=== PATIENT | female | born 1980 | race Two or more races ===

== ENCOUNTER 2021-03-23 17:45 | Emergency (ER) | payer OTHER, SELFPAY ==
[2021-03-23 18:15] VITALS: BP 154/90; PULSE 83; RESP 18; TEMP 36.5; O2SAT 99
[2021-03-23 21:15] VITALS: BP 148/88; PULSE 88; RESP 15; O2SAT 100
--- NOTE | 2021-03-23 21:22 | ED.SKABFB ---
HPI - Skin/Abscess/Foreign Bdy General Chief complaint: Skin/Abscess/Foreign Body Stated complaint: Absces Time Seen by Provider: 03/23/21 20:57 History of Present Illness HPI narrative: Patient presents with concern for abscess. Reports irritation close to her left axilla for the past 1 to 2 weeks getting progressively worse. It is now red warm and swollen. Reports history of abscesses this feels like her prior ones. She denies fevers, cough, congestion, chest pain. Her pain around her abscess site is achy, constant, worse with palpation, no radiation. Patient reports history of MRSA Related Data Allergies Allergy/AdvReac Type Severity Reaction Status Date / Time No Known Allergies Allergy Verified 03/23/21 21:14 Review of Systems Review of Systems: CONSTITUTIONAL: Denies fever, chills, or sweats. EYES: Denies visual changes, redness, or discharge. ENT: Denies rhinorrhea, congestion, sore throat, or otalgia. CARDIOVASCULAR: Denies chest pain, palpitations, or edema. RESPIRATORY: Denies cough or dyspnea. GASTROINTESTINAL: Denies abdominal pain, nausea, vomiting, or diarrhea. GENITOURINARY: Denies dysuria or hematuria. SKIN: Denies rash or itching. MUSCULOSKELETAL: Denies back pain, joint pain, or myalgia. NEUROLOGIC: Denies headache, numbness, dizziness, or weakness. PSYCHIATRIC: Denies anxiety or depression. All systems reviewed & are unremarkable except as noted in HPI and below Exam Narrative: GENERAL: Well-appearing, well-nourished, and in no acute distress. HEAD: Normocephalic, atraumatic. EYES: PERRLA and EOMI. ENT: Nares clear, no rhinorrhea or epistaxis. Mucous membranes moist. NECK: Supple. No masses. No JVD EXTREMITIES: Normal range of motion. No edema. SKIN: Warm, dry. On the left lateral superior aspect of the chest wall there is focal edema approximately 1 x 1 cm that is exquisitely tender to palpation there is a 2 x 2 centimeter surrounding erythema there is no open or draining wounds. NEURO: No focal deficits. Alert and oriented x3. PSYCH: Normal mood and affect. Course Vital Signs Vital signs: Vital Signs Temperature 36.5 C 03/23/21 18:15 Pulse Rate 83 03/23/21 18:15 Respiratory Rate 18 03/23/21 18:15 Blood Pressure 154/90 H 03/23/21 18:15 Pulse Oximetry 99 03/23/21 18:15 Temperature 36.5 C 03/23/21 18:15 Pulse Rate 80 03/23/21 22:13 Respiratory Rate 17 03/23/21 22:13 Blood Pressure 134/80 03/23/21 22:13 Pulse Oximetry 99 03/23/21 22:13 Procedures Abscess I/D chest: Date of Incision: 03/23/21 Time of Incision: 21:37 Side (if applicable): left Sedation/analgesia: none Local Anesthetic: lidocaine 1% and with epi Amount of anesthesia used (mL): 3 Technique: incised with #11 blade Amount of fluid expressed (mL): 4 Irrigation: Yes Packing used?: plain I&D Results: Pus and Blood Abcess I&D Additional Comments: Patient tolerated procedure well and felt improved after the procedure MDM - Skin/Abscess/Foreign Bdy MDM Narrative Medical decision making narrative: H&P as above, vss, pt looks clinically well, exam most suggestive of abscess, bedside ultrasound performed showing a focal fluid collection, additional labs/img considered. symptomatic relief available as needed, patient treated with I&D on reevaluation pt continues to looks clinically well. Suspect abscess with surrounding cellulitis dns severe sepsis, necrotizing soft tissue infection. plan to tx/monitor as op w/ pcm f/u findings/plan discussed with pt, pt agree/comfortable with plan, return precautions given given patient's history of MRSA will treat with Bactrim Discharge Plan Discharge Clinical Impression: Abscess of skin or subcutaneous tissue, Cellulitis Patient Disposition: Home, Self-Care Condition: Improved Instructions: Antibiotic Form, Abscess (ED) Additional Instructions: Please return if your symptoms worse
[2021-03-23 22:13] VITALS: BP 134/80; PULSE 80; RESP 17; O2SAT 99
== END 2021-03-23 22:15 | disposition home or self-care (01) ==
LOC: ANHED 22:07
PROVIDERS: Emergency Provider Emergency Medicine
DX: L02.213 Cutaneous abscess of chest wall (principal); L03.313 Cellulitis of chest wall; Z86.14 Personal history of Methicillin resistant Staphylococcus aureus infection
CPT/HCPCS: 10060; 99283

== ENCOUNTER 2021-04-12 06:46 | Emergency (ER) | payer OTHER, SELFPAY ==
[2021-04-12 06:52] VITALS: BP 138/86; PULSE 89; RESP 15; TEMP 36.2; O2SAT 99
--- NOTE | 2021-04-12 07:39 | ED.DENTAL ---
HPI - Dental/Oral General Chief complaint: Dental/Oral Stated complaint: tooth infection, swollen face Time Seen by Provider: 04/12/21 07:04 Source: patient Mode of arrival: ambulatory Limitations: no limitations History of Present Illness HPI Narrative: The patient is a 41 yo female with a hx of HTN, PTSD, Depression/Anxiety who presents with left upper dental pain due to a cracked tooth. Patient has seen dentist in February, but does not have insurance plan at this time. Has 8/10 pain which is throbbing in nature. Has been taking 800 mg Ibuprofen three times daily, but pt did take hydrocodone yesterday to help alleviate the pain. Pt does have history of dental abscess in the past. Pain does radiate to her left ear. No fevers. Able to tolerate oral intake. No neck pain. No difficulty swallowing. Related Data Allergies Allergy/AdvReac Type Severity Reaction Status Date / Time No Known Allergies Allergy Verified 03/23/21 21:14 Review of Systems Review of Systems: CONSTITUTIONAL: Denies fever CARDIOVASCULAR: Denies chest pain RESPIRATORY: Denies cough or dyspnea. GASTROINTESTINAL: Denies abdominal pain SKIN: Denies rash MUSCULOSKELETAL: Denies back pain NEUROLOGIC: Denies headache Exam Narrative: GENERAL: Awake, alert, conversant HEAD: Normocephalic, atraumatic. EYES: PERRLA and EOMI. ENT: Nares clear, no rhinorrhea or epistaxis. Mucous membranes moist. Tooth 13 is eroded. Gingiva is mildly inflamed; no purulent discharge. Uvula is midline. No trismus. NECK: Supple. No lymphadenopathy. CHEST: No respiratory distress, breathing even and non labored HEART: Regular rate, sinus rhythm ABDOMEN:Non distended, non tender EXTREMITIES: Normal range of motion. No edema. SKIN: Warm, dry, no rash. NEURO:No focal deficits. Alert and oriented x3 Course Vital Signs Vital signs: Vital Signs Temperature 36.2 C L 04/12/21 06:52 Pulse Rate 89 04/12/21 06:52 Respiratory Rate 15 04/12/21 06:52 Blood Pressure 138/86 04/12/21 06:52 Pulse Oximetry 99 04/12/21 06:52 Temperature 36.2 C L 04/12/21 06:52 Pulse Rate 89 04/12/21 06:52 Respiratory Rate 15 04/12/21 06:52 Blood Pressure 138/86 04/12/21 06:52 Pulse Oximetry 99 04/12/21 06:52 MDM - Dental/Oral MDM Narrative Medical decision making narrative: Patient's pain is consistent with dental caries. At the time of assessment there are no signs of systemic illness, no focal signs of space-occupying abscess or lesions, no signs of Braydon angina or other concerning retropharyngeal infection. The patient is controlling her secretions well without signs of airway compromise. Patient is thought reasonable for outpatient follow-up with dental evaluation. Patient given oral antibiotics and medication for analgesia. She was given strict return precautions. Differential Diagnosis Differential diagnosis: Likely dental caries, toothache, dental abscess and fracture of tooth Medical Records Attestation: I reviewed the patient's medical records. Discharge Plan Discharge Clinical Impression: Toothache, Dental caries Patient Disposition: Home, Self-Care Condition: Stable Instructions: Antibiotic Form, Toothache (ED) Additional Instructions: You have evidence of an early tooth infection. Please contact your dentist for follow up from this visit. Here are some local dentists below: Dr. [place] [place], [place] [phone] [phone] If you experience worsening pain, swelling in your jaw, fever greater than 100.4 Fahrenheit, inability to swallow or difficulty breathing, please call 911 or come to the nearest emergency department. Take any prescribed medications as directed and do not miss or skip any doses of antibiotics Stay well-hydrated For fever and pain, you may take Tylenol 500 mg - 1000 mg every 8 hours, and Ibuprofen 400 mg every 6-8 hours as
== END 2021-04-12 08:19 | disposition home or self-care (01) ==
PROVIDERS: Emergency Provider Emergency Medicine
DX: K02.9 Dental caries, unspecified (principal); I10 Essential (primary) hypertension
CPT/HCPCS: 99283